=== PATIENT | male | born 1965 | race Native Hawaiian/Other Pacific Islander ===

== ENCOUNTER 2020-02-01 08:55 | Outpatient (CLI) | payer OTHER | END 2020-02-01 19:36 | disposition home or self-care (01) | LOC: MRI 08:55 | DX: M54.17 Radiculopathy, lumbosacral region (principal) ==

== ENCOUNTER 2020-09-19 10:24 | Outpatient (CLI) | payer OTHER | END 2020-09-19 23:33 | disposition home or self-care (01) | LOC: RAD 10:24 | DX: J44.1 Chronic obstructive pulmonary disease with (acute) exacerbation (principal) ==